=== PATIENT | female | born 1930 | race Caucasian/White ===

== ENCOUNTER 2016-09-30 07:19 | Inpatient (IN) | payer MEDICARE, BC ==
[2016-09-28 13:41] VITALS: BMI 31.3
[~2016-09-30 07:19] MED LIST: ALPRAZolam 0.25 MG TAB PO PRN; ALPRAZolam 0.5 MG TAB PO PRN; ASPIRIN 325 MG TAB PO STA; ATORVASTATIN 80 MG TAB PO STA; NITROGLYCERIN SL TABS 0.4 MG TAB SUBLINGUAL PRN; SODIUM CHLORIDE 0.9% 1,000 ML in EMPTY BAG 1 BAG IV ONE
[2016-09-30] MEDS ORDERED: MIDAZOLAM 2 MG/2 ML VIAL ONE ×2 (10:41→22:51)
[2016-09-30] MEDS ORDERED: diphenhydrAMINE 50 MG/ML 1 ML VIAL ONE (10:41)
[2016-09-30] MEDS ORDERED: diphenhydrAMINE 50 MG/ML 1 ML VIAL IVP ONE (11:11)
[2016-09-30] MEDS ORDERED: MIDAZOLAM 2 MG/2 ML VIAL IV ONE ×2 (11:11→22:59)
[2016-09-30] MEDS ORDERED: LIDOCAINE 2% INJ 20 MG/ML SQ ONE (11:22)
[2016-09-30] MEDS ORDERED: NITROGLYCERIN SL TABS 0.4 MG TAB SUBLINGUAL ONE ×2 (11:28→12:29)
[2016-09-30] MEDS: NITROGLYCERIN SL TABS 0.4 MG TAB SUBLINGUAL ONE ×2 (11:29→12:30)
[2016-09-30] MEDS: NITROGLYCERIN 1000MCG/10ML SYRINGE INTRACORON ONE ×2 (11:30→12:41)
[2016-09-30] MEDS ORDERED: BIVALIRUDIN BOLUS 250 MG/50 ML IV ONE (11:50)
[2016-09-30] MEDS ORDERED: BIVALIRUDIN 250 MG in SODIUM CHLORIDE 0.9% 50 ML IV ONE (11:52)
[2016-09-30] MEDS ORDERED: CLOPIDOGREL 75 MG TAB ONE (12:47)
[2016-09-30] MEDS ORDERED: IODIXANOL 320 MG/ML 100 ML INTRAARTER ONE (12:47)
[2016-09-30] MEDS ORDERED: CLOPIDOGREL 75 MG TAB PO ONE (12:49)
[2016-09-30] MEDS ORDERED: ATROPINE SULFATE 0.1 MG/ML 10ML SYRINGE IV PRN (12:55)
[2016-09-30] MEDS ORDERED: MAG HYDROX/AL HYDROX/SIMETH 30 ML CUP PO PRN (12:55)
[2016-09-30] MEDS ORDERED: RX INFO: IV CONTRAST WAS GIVEN 1 EACH MISC MISCELLANE PRN ×2 (12:55→15:45)
[2016-09-30] MEDS ORDERED: NITROGLYCERIN SL TABS 0.4 MG TAB SUBLINGUAL PRN ×2 (12:55→17:04)
[2016-09-30] MEDS: SODIUM CHLORIDE 0.9% 1,000 ML IV SCH ×2 (15:18→21:24)
[2016-09-30 15:45] LABS: Glucose,Whole Blood 114 mg/dL (75-99)
[2016-09-30] MEDS ORDERED: LABETALOL SYRINGE 5 MG/ML IVP STA (16:23)
[2016-09-30] MEDS ORDERED: NITROGLYCERIN SL TABS 0.4 MG TAB SUBLINGUAL STA (16:24)
--- NOTE | 2016-09-30 16:30 | CT ---
EXAMINATION TYPE: CT brain wo con for TPA DATE OF EXAM: 09/30/2016 4:12 PM COMPARISON: NONE INDICATION: code stroke. lethargic. DLP: 309.4 mGycm, Automated exposure control for dose reduction was used. CONTRAST: None CT of the brain is performed utilizing 3 mm thick sections through the posterior fossa and 3 mm thick sections through the remaining calvarium. Study is performed within 24 hours of arrival to the hosp [facility]. No abnormal hyperdensity is present to suggest an acute intracranial hemorrhage. No mass lesion is evident. No acute infarcts are evident. There is confluent periventricular white matter hypodensity, likely on the basis of chronic white matter ischemic changes. Ventricles and sulci are prominent for the patient age. Paranasal sinuses and mastoid air cells within the [id number]-alad are clear. IMPRESSIONS: 1. Atrophy with periventricular white matter ischemic changes.
--- NOTE | 2016-09-30 16:54 | CT ---
EXAMINATION TYPE: CT angio head neck DATE OF EXAM: 09/30/2016 4:30 PM COMPARISON: NONE HISTORY: code stroke. lethargic and facial droop. CT DLP: 309.4 mGycm Automated exposure control for dose reduction was used. TECHNIQUE: Performed with IV Contrast, patient injected with 65 mL of Visipaque 320. Source images are reviewed. Three-D reconstructed images performed separately on the Spock computer by the technologist are reviewed. FINDINGS: [place] of [place]: Internal carotid arteries bifurcate normally and A1 and M1 segments. The anterior c ommunicating artery is patent. Posterior communicating arteries are not identified. The A2 segments a ppear unremarkable. Middle cerebral artery branches appear normal. Posterior cerebral vasculature taylor ears normal. CTA neck: No obstruction of the carotid siphons is evident. No significant flow-limiting stenosis is evident. Atheromatous plaquing is present at the left carotid bifurcation. Significant flow-limiting stenosis is not present. IMPRESSION: 1. BILATERAL CAROTID BIFURCATIONS WITH ATHEROMATOUS PLAQUING, WORSE ON THE LEFT. SIGNIFICANT FLOW-WADDELL ITING STENOSIS IS NOT PRESENT. 2. NORMAL CTA [place] OF [place]
[2016-09-30] MEDS ORDERED: traMADol 50 MG TAB PO PRN (17:04)
[2016-09-30] MEDS ORDERED: ONDANSETRON 4 MG TAB PO PRN (17:04)
[2016-09-30] MEDS ORDERED: NON-FORMULARY DRUG (Omega-3 Fatty Acids/Fish Oil [Fish Oil 1,000 Mg Softgel] 1 EACH) PO SCH (17:04)
[2016-09-30 17:17] LABS: INR 1.3 (<1.1); Prothrombin Time 13.1 sec (9.0-12.0)
[2016-09-30 17:20] LABS: CH 28.1; CHCM 31.6; HCT 40.8 % (34.0-46.0); HDW 2.72; HGB 13.1 gm/dL (11.4-16.0); Hypochromasia Slight; MCH 28.7 pg (25.0-35.0); MCHC 32.1 g/dL (31.0-37.0); MCV 89.3 fL (80.0-100.0); Mean Platelet Volume 6.7; RBC 4.56 m/uL (3.80-5.40); RDW 13.4 % (11.5-15.5); WBC 9.5 k/uL (3.8-10.6)
[2016-09-30 17:49] LABS: Creatine Kinase MB 1.1 ng/mL (0.0-2.4)
[2016-09-30 17:51] LABS: Troponin I 0.041 ng/mL (0.000-0.034)
[2016-09-30] MEDS ORDERED: LISINOPRIL 10 MG TAB PO STA (18:38)
[2016-09-30] MEDS: METOPROLOL TARTRATE 25 MG TAB PO SCH (18:38)
[2016-09-30 19:19] LABS: Anion Gap 16 mmol/L; Blood Urea Nitrogen 16 mg/dL (7-17); Carbon Dioxide 16 mmol/L (22-30); Chloride 108 mmol/L (98-107); Creatine Kinase 60 U/L (30-135); Non-African American GFR(MDRD) >60 (>60 ml/min/1.73 sqM); Potassium 3.5 mmol/L (3.5-5.1); Sodium 140 mmol/L (137-145)
[2016-09-30] MEDS ORDERED: ONDANSETRON 4 MG/2 ML VIAL IVP PRN (19:54)
[2016-09-30] MEDS ORDERED: LABETALOL SYRINGE 5 MG/ML IVP PRN (20:15)
[2016-09-30] MEDS ORDERED: FUROSEMIDE 10 MG/ML 2 ML VIAL IV STA (20:51)
--- NOTE | 2016-09-30 21:16 | PN ---
Mrs. Mckinley underwent stenting of a very difficult complex circumflex vessel performed by me today. Postprocedure she required a prolonged pressure on her right femoral artery to secure hemostasis. After she was transferred to the floor, she became a bit confused and apparently there was a question of stroke. A Code stroke was called. CT scan was performed, which did not reveal any significant abnormalities. The whole process of a CODE stroke was conducted. By the time patient recovered neurologically she seems a bit confused but answers questions appropriately and follows commands. Blood pressure is about 167/77. I discussed with the neurologist precipitation equipment tender for the CODE stroke through the visual consulting. I believe that an accelerated hypertension may have caused some transient ischemia type picture, which seems to have resolved. However, the patient is neurologically intact, some confusion, but even that has cleared up. There are no motor deficits but speech may be an issue, await Neurology input. Blood pressure is 167/77. Pulse rate 70 per minute. S1, S2 with a short systolic murmur at the base is audible. Lungs are clear. Abdomen and lower extremity exam is unchanged. The right groin still has a FemoStop and appears to be stable. I am recommending that we continue all her medications. Keep the blood pressure in the range between 140 and 170 systolic and based on clinical course, I will make further recommendations. I spoke to the patient and her and her daughter. The plan will be to continue to follow her and watch her closely and tomorrow morning we will obtain the EKG and additional laboratory data. BARAK
[2016-09-30 22:07] LABS: Glucose,Whole Blood 174 mg/dL (75-99)
[2016-09-30] MEDS ORDERED: MIDAZOLAM (PF) 1 MG/ML 5 ML VIAL IV STA (22:31)
[2016-09-30] MEDS ORDERED: METOPROLOL TARTRATE 25 MG TAB PO STA (22:31)
[2016-09-30] MEDS ORDERED: amLODIPine 5 MG TAB PO STA (22:31)
--- NOTE | 2016-09-30 22:32 | CONS ---
DATE OF CONSULTATION: 09/30/2016 CHIEF COMPLAINT: Stroke. HISTORY OF PRESENT ILLNESS: Mrs. Mckinley is an 86-year-old female who is being evaluated by the neurology service per the request of Dr. Angel Gutierrez for an acute stroke. The patient was brought into [facility] Emergency Room for a scheduled heart cath and the patient did end up having 2 stents placed. She does have an extensive history of coronary artery disease with a previous bypass graft. She had been following up with cardiology in the outpatient clinic and did have a heart cath several months ago which was negative, according to the family. The patient recently had an abnormal stress test which prompted this current heart cath and 2 stents were placed as mentioned above. After the procedure, the patient was on the medical floor when she developed a sudden onset of difficulty talking. A code stroke was called, but she was not found to be a candidate for TPA due to the recent heart cath. At the time of my evaluation, she is lying in her bed and continues to have symptoms of receptive and expressive aphasias along with dysarthria. She is moving all 4 extremities spontaneously with no obvious lateralizing weakness. A stat CT scan of the brain was done, which showed generalized atrophy and small-vessel ischemic changes. A CT angiogram of the brain was done, which was normal. A CT angiogram of the neck showed no significant stenosis. Her CBC is normal. The patient is currently on aspirin and Plavix. PAST MEDICAL HISTORY: Coronary artery disease, diabetes, hypertension, history of coronary artery bypass grafting and recent stent placement as mentioned above. SOCIAL HISTORY: There is no history of any tobacco, alcohol or drug use. FAMILY HISTORY: Noncontributory. HOME MEDICATIONS: Reviewed in the chart. ALLERGIES: MORPHINE AND ATIVAN. REVIEW OF SYSTEMS: Unable to obtain due to aphasia. PHYSICAL EXAM: Vital signs show a temperature of 97.5, pulse 69, respirations 20, blood pressure 140/75. GENERAL APPEARANCE: The patient is a well-developed, elderly female who appears to be in no acute distress. HEENT: Normocephalic, atraumatic. Mild right facial droop is seen. Neck is supple with no masses felt. CARDIOVASCULAR: Regular rate and rhythm. ABDOMEN: Nontender, nondistended. Extremities showed trace edema with no clubbing seen. NEUROLOGICAL: The patient is awake, but has evidence of a mixed aphasia, receptive more than expressive. Speech is dysarthric. She does move all 4 extremities with no obvious lateralizing weakness seen. Sensory was difficult to perform due to her receptive aphasia. A mild right facial droop is noticed. No seizure-like activity is seen. IMPRESSION: 1. Acute ischemic stroke, left middle cerebral artery distribution. 2. Receptive and expressive aphasia. 3. Hypertension. 4. Coronary artery disease with recent stent placements. 5. Diabetes. RECOMMENDATIONS: The patient does appear to have suffered an acute ischemic stroke involving the left middle cerebral artery distribution. Her initial CT scan of the brain failed to show the hypoperfusion/hypoattenuation. She is unable to undergo an MRI due to the recent stent placement. I will repeat a CT scan of the brain in 24 hours. Continue IV hydration as tolerated. The patient is already on Plavix and aspirin. I will consult Speech Therapy to evaluate and treat. I do recommend a swallow study to be done by Speech Therapy. Continue neuro checks. I will continue to follow with you. Further recommendations to follow. Thank you for allowing me to participate in the care of your patient. If you have any questions, please feel free to contact me.
[2016-09-30] MEDS: ATORVASTATIN 80 MG TAB PO SCH (22:56)
[2016-09-30] MEDS: VIT A,C & E-LUTEIN-MINERALS 1 EACH TAB PO SCH (22:56)
[2016-09-30 23:27] LABS: Appearance,Urine Clear (Clear); Bilirubin,Urine Negative (Negative); Glucose,Urine (UA) Negative (Negative); Ketones,Urine Trace (Negative); Leukocyte Esterase,Urine Negative (Negative); Nitrite,Urine Negative (Negative); Protein,Urine Negative (Negative); UA Billing (MACRO vs. MICRO) CHEM; Urobilinogen,Urine <2.0 mg/dL (<2.0)
[2016-10-01] MEDS: ZOLPIDEM 5 MG TAB PO PRN (01:11)
[2016-10-01 05:23] LABS: Basophils % (A) 0 %; CH 28.7; CHCM 33.7; Eosinophils # (A) 0.1 k/uL (0-0.7); Eosinophils % (A) 1 %; HCT 37.6 % (34.0-46.0); HDW 2.74; HGB 12.6 gm/dL (11.4-16.0); Luc # (Auto) 0.06; Luc % (Auto) 0; Lymphocytes % (A) 7 %; MCH 28.6 pg (25.0-35.0); MCHC 33.5 g/dL (31.0-37.0); MCV 85.4 fL (80.0-100.0); Mean Platelet Volume 6.6; Monocytes # (A) 0.3 k/uL (0-1.0); Monocytes % (A) 2 %; Neutrophils # (A) 12.9 k/uL (1.3-7.7); Neutrophils % (A) 90 %; RDW 13.7 % (11.5-15.5); WBC 14.4 k/uL (3.8-10.6)
[2016-10-01 05:38] LABS: Anion Gap 16 mmol/L; Blood Urea Nitrogen 15 mg/dL (7-17); Calcium 8.9 mg/dL (8.4-10.2); Carbon Dioxide 20 mmol/L (22-30); Chloride 105 mmol/L (98-107); Glucose 168 mg/dL (74-99); Non-African American GFR(MDRD) 60 (>60 ml/min/1.73 sqM); Potassium 3.6 mmol/L (3.5-5.1); Sodium 141 mmol/L (137-145)
[2016-10-01] MEDS ORDERED: Potassium Replacement Protocol 1 EACH MISC MISCELLANE PRN (07:00)
--- NOTE | 2016-10-01 07:20 | CC ---
DATE OF SERVICE: 09/30/2016 PROCEDURE: Left heart catheterization, coronary angiography and selective injection of bypass grafts. PERFORMED BY: Dr. Angel Gutierrez. CLINICAL INFORMATION: Mrs. Ada Mckinley is an 86-year-old elderly lady with a known history of aortocoronary bypass surgery in 2007 with GONZALEZ to LAD and 2 separate vein grafts to the 2 branches of circumflex. Right coronary artery was dominant and was not grafted. In June she presented with ST elevation AR type picture, but coronary angiography revealed that there was significant disease in one of the vein grafts to the obtuse marginal, the other graft was not visualized and presumably occluded. GONZALEZ was patent. However, upon passing a wire and a balloon before dilatation itself, the vessel opened up and there was brisk flow and EKG changes normalized and it was assumed that there may have been a thrombus in the graft to the obtuse marginal. So, no intervention was performed. However, the patient had a positive stress test, was advised cardiac catheterization and brought in for the procedure electively. PROCEDURE NOTE: Under local anesthesia and strict aseptic precautions, a 6-Tuvaluan introducer was placed in the right femoral artery. Using standard Naveen catheters, I performed coronary angiography of the left coronary artery then used a Silver catheter for selective injection of the chicken ranch RCA and also the vein graft to obtuse marginal branch of circumflex. The same catheter was used to do an injection of GONZALEZ graft. I used an AR-2 catheter and with this I was able to selectively cannulate the totally occluded graft to the PLV branch of circumflex and also got a better image of the vein graft to the obtuse marginal branch. I noted that the vein graft to the obtuse marginal had a 95% mid lesion and ostial 80% lesion, which represented progression of disease. However, this was a graft that appeared to be quite diseased and I felt that it will be better to open the chicken ranch circumflex itself. I therefore recommended intervention that was performed in the same setting. An LV gram was not performed and LV pressures were not checked. CORONARY ANGIOGRAPHIC FINDINGS: LEFT MAIN CORONARY ARTERY: A short, patent, disease-free vessel that bifurcates into LAD and circumflex. LEFT ANTERIOR DESCENDING CORONARY ARTERY: This vessel is occluded in the midportion after septal and diagonal branch. Competitive flow was noted from the GONZALZE. LEFT POSTERIOR CIRCUMFLEX CORONARY ARTERY: This vessel gives off a small obtuse marginal branch and then there is a large obtuse marginal branch. Before the origin of the large obtuse marginal branch, there is a 70% stenosis and within the obtuse marginal there is a 95% stenosis. The continuation of circumflex in the AV groove is totally occluded and seems to feel very faintly the distal portion. The circumflex marginal therefore has a significant lesion of about 95% before and after another obtuse marginal branch and there is heavy calcification noted in this segment. RIGHT CORONARY ARTERY: This vessel is large, dominant has minor irregularities of less than 30% distally bifurcates into larger PDA, smaller PLV supplies a fair amount of myocardium. There is no significant disease in the RCA. SAPHENOUS VEIN GRAFT TO THE OBTUSE MARGINAL BRANCH OF CIRCUMFLEX: This graft is highly diseased at its origin, has 80% stenosis. The body in the midportion has a 95% stenosis. The insertion site has some narrowing and the floor within the graft is fairly well preserved, but the body of the graft appears to be highly diseased. SAPHENOUS VEIN GRAFT TO THE PLV BRANCH OF CIRCUMFLEX: This graft is totally occluded, seen as a stump, LEFT INTERNAL MAMMARY ARTERY GRAFT TO LAD: This graft is widely patent and supplies the LAD. There is some intrinsic disease within the LAD of about 30 to 40% but overall this is a good graft with decent opacification of the LAD system. FINAL IMPRESSION: This patient has total occlusion of vein graft to the PLV and also a highly diseased graft both in the ostium and the body of 80% and 90% and this graft opacifies the obtuse marginal. The chicken ranch obtuse marginal is also diseased and heavily calcified. RCA is free of significant disease. LAD is occluded but GONZALEZ to LAD is patent. RECOMMENDATIONS: After some deliberation, I advised intervention of the chicken ranch circumflex and proceeded to perform this in the same setting.
[2016-10-01] MEDS: POTASSIUM CHLORIDE 10 MEQ, LIDOCAINE 2% INJ 10 MG in SODIUM CHLORIDE 0.9% 100 ML IV SCH ×2 (07:23→08:54)
--- NOTE | 2016-10-01 07:28 | PTCA ---
DATE OF SERVICE: 09/30/2016 PROCEDURE: PTCA and stenting of complex calcified circumflex coronary artery. PERFORMED BY: Dr. Angel Gutierrez. CLINICAL INFORMATION: Mrs. Ada Mckinley is an 86-year-old elderly lady with a known history of aortocoronary bypass surgery in 2007 with GONZALEZ to LAD and 2 separate vein grafts to the 2 branches of circumflex. Right coronary artery was dominant and was not grafted. In June she presented with ST elevation PR type picture, but coronary angiography revealed that there was significant disease in one of the vein grafts to the obtuse marginal, the other graft was not visualized and presumably occluded. GONZALEZ was patent. However, upon passing a wire and a balloon before dilatation itself, the vessel opened up and there was brisk flow and EKG changes normalized and it was assumed that there may have been a thrombus in the graft to the obtuse marginal. So, no intervention was performed. However, the patient had a positive stress test, was advised cardiac catheterization and brought in for the procedure electively. Mrs. Mckinley was advised intervention of circumflex, which was a difficulty complex calcified lesion and I performed this in the same setting. PROCEDURE NOTE: Existing 6-Romansh introducer was used to perform the procedure, a standard left Naveen-type guide catheter was used to cannulate the left coronary artery. A BMW wire was used to cross the lesion. Wire was kept in the distal aspect of the circumflex marginal. I tried to cross the total occlusion of the groove branch, but was unsuccessful. I then advanced another wire alongside. I tried to advance a balloon to dilate, but I had great difficulty with a 2.5 and a 2.0 balloon. Eventually I used a 1.5 caliber Trek balloon. After multiple attempts, I was able to cross the lesion and ( ) dilatation of the obtuse marginal. With this, there was significant improvement. Then I went up to 2.0 NC Trek balloon and then eventually I deployed a 2.25 caliber, 8 mm long Xience stent in the circumflex marginal after the origin of the smaller circumflex. Then before the smaller circumflex marginal branch and just at the origin of the circumflex marginal from the main circumflex, another 2.25 caliber, 8 mm long Xience stent was deployed. Excellent angiographic result was achieved without complication. There was a remarkable improvement in angiographic appearance and flow and the entire graft also seems to opacify. The patient received 600 mg of Plavix and also received Angiomax bolus and infusion. The sheath was taken out and Angio-Seal applied but I could not get a good hemostasis and manual compression was applied for a very long time and then FemoStop was applied. Angiographically excellent results were achieved. Results were discussed with the patient's and daughter and the images were reviewed with them. The patient will be sent to the telemetry unit and if she remains stable will hopefully be discharged tomorrow. Findings, results and recommendations were reviewed with the patient, her daughter and her .
--- NOTE | 2016-10-01 07:52 | PN ---
This morning Ms. Mckinley is alert, oriented, less confused, answering questions appropriately. She is not in any distress. The right groin is clean and dry. Blood pressure is 136/70, pulse rate is 70 per minute. She was seen by Neurology yesterday and Dr. Ortiz has ordered a CAT scan that will be done today. The plan for today would be to increase activity, have her up in a chair and resume her cardiac diet and see how she does. If she has no further symptoms and CAT scan is acceptable to the Neurology, I think she can be discharged later on today. She probably has ischemic stroke with Speech but no clearcut motor issues. Speec and Occupational therapy is on the case. Physical exam revealed evidence of JVD of 1 cm, no carotid bruit. S1, S2 heard normally. No significant murmur. Lungs reveal decent air entry. Abdomen is soft, nontender. Lower extremities reveal palpable pulses. Right groin is clean and dry. EKG is pending. Laboratory data are acceptable. I will review the EKG, await input from Neurology and CAT scan and then she may be discharged either later today or tomorrow. I will be speaking to the family when they arrive. BARAK
[2016-10-01] MEDS: ASPIRIN 81 MG CHEW PO SCH (08:54)
[2016-10-01] MEDS: METOPROLOL TARTRATE 25 MG TAB PO SCH ×2 (08:54→22:34)
[2016-10-01] MEDS: LISINOPRIL 10 MG TAB PO SCH (08:54)
[2016-10-01] MEDS: CLOPIDOGREL 75 MG TAB PO SCH (08:54)
[2016-10-01] MEDS: PANTOPRAZOLE 40 MG/10 ML VIAL IVP SCH (08:54)
[2016-10-01] MEDS: CALCIUM CARBONATE 500 MG CHEWABLE PO SCH (08:54)
[2016-10-01] MEDS: SERTRALINE 100 MG TAB PO SCH (08:55)
[2016-10-01] MEDS ORDERED: ASPIRIN 81 MG CHEW PO SCH (09:00)
[2016-10-01] MEDS ORDERED: FAMOTIDINE 20 MG TAB PO SCH (09:00)
[2016-10-01] MEDS ORDERED: CLOPIDOGREL 75 MG TAB PO SCH (12:00)
[2016-10-01] MEDS: CHOLECALCIFEROL 1,000 UNIT TAB PO SCH (12:11)
--- NOTE | 2016-10-01 15:35 | P.PN ---
Subjective Principal diagnosis: Stroke Is a pleasant 86-year-old female continuing be evaluated by the neurology service for acute stroke. She was brought to [facility] for scheduled heart catheterization and subsequently had 2 stents placed. After the procedure, the patient is on the medical floor and developed trouble speaking. Code stroke was called and she was not a candidate for TPA because of her recent heart catheterization. A CT of the brain was done and showed generalized atrophy and small vessel ischemic changes. A CTA was done and was normal. Because her symptoms were very suggestive of a stroke a repeat CT was ordered, but has not yet been performed. She cannot have an MRI due to her recent stent placement. At the time of my exam she is sitting up in her bedside chair resting comfortably in no acute distress. Consult is been placed for speech therapy she denies problems swallowing. Objective - Vital Signs Vital signs: Vital Signs Temp 98.3 F 10/01/16 12:00 Pulse 77 10/01/16 15:00 Resp 18 10/01/16 15:00 BP 133/75 10/01/16 15:00 Pulse Ox 98 10/01/16 15:00 Intake & Output 09/30/16 10/01/16 10/01/16 18:59 06:59 18:59 Intake Total 435.7 525 890 Output Total 1325 435 Balance 435.7 -800 455 Weight 68.039 kg 69.1 kg Intake: IV 435.7 525 450 Sodium Chloride 0.9% 1, 525 450 000 ml @ 75 mls/hr IV . [id number] DEAN Rx#:[id number] Intake, IV Titration 100 Amount Potassium Chloride 10 meq 100 Lidocaine 2% Inj 10 mg In Sodium Chloride 0.9% 100 ml @ 100 mls/hr IV Q1HR DEAN Rx#:[id number] Oral 340 Output: Urine 1325 435 Other: Voiding Method Indwelling Catheter Indwelling Catheter # Bowel Movements 1 - Constitutional General appearance: Present: average body habitus, cooperative, no acute distress - EENT Eyes: Present: EOMI, PERRLA. Absent: abnormal pupil, ptosis ENT: Present: hearing grossly normal - Neck Neck: Present: normal ROM. Absent: rigidity - Respiratory Respiratory: negative: prolonged expiration, prolonged inspiration - Cardiovascular Rhythm: regular - Gastrointestinal General gastrointestinal: Absent: distended, tenderness - Neurologic Neurologic Comment(s): Patient is alert awake and oriented 3. Speech and language are normal. There is no lateralizing weakness. Strength is 5 minus out of 5 in bilateral upper and lower extremities. There is mild bilateral dysmetria with finger to nose testing, which seems normal for her age. There is no sensory deficit in any extremity. There is no sensory deficit to the face. No significant facial droop was noted. She does have some right sided periorbital bruising from a fall, which she does recall that happened about a week ago. No significant tremors are seen. No seizure-like activities are seen. - Labs CBC & Chem 7: 10/01/16 04:58 10/01/16 04:58 Labs: Abnormal Lab Results - Last 24 Hours (Table) 09/30/16 09/30/16 09/30/16 Range/Units 15:42 16:59 16:59 WBC (3.8-10.6) k/uL Neutrophils # (1.3-7.7) k/uL PT 13.1 H (9.0-12.0) sec Chloride (98-107) mmol/L Carbon Dioxide (22-30) mmol/L Glucose (74-99) mg/dL POC Glucose (mg/dL) 114 H (75-99) mg/dL Troponin I 0.041 H* (0.000-0.034) ng/mL Urine Ketones (Negative) 09/30/16 09/30/16 09/30/16 Range/Units 16:59 21:50 23:15 WBC (3.8-10.6) k/uL Neutrophils # (1.3-7.7) k/uL PT (9.0-12.0) sec Chloride 108 H (98-107) mmol/L Carbon Dioxide 16 L (22-30) mmol/L Glucose (74-99) mg/dL POC Glucose (mg/dL) 174 H (75-99) mg/dL Troponin I (0.000-0.034) ng/mL Urine Ketones Trace H (Negative) 10/01/16 10/01/16 Range/Units 04:58 04:58 WBC 14.4 H (3.8-10.6) k/uL Neutrophils # 12.9 H (1.3-7.7) k/uL PT (9.0-12.0) sec Chloride (98-107) mmol/L Carbon Dioxide 20 L (22-30) mmol/L Glucose 168 H (74-99) mg/dL POC Glucose (mg/dL) (75-99) mg/dL Troponin I (0.000-0.034) ng/mL Urine Ketones (Negative) Microbiology - Last 24 Hours (Table) 09/30/16 23:15 Urine Culture - Preliminary Urine,Catheterized Assessment and Plan (1) Aphasia Status: Resolved (2) Hypertension Status: Chronic (3) Diabetes Status: Chronic (4) CVA (cerebral vascular accident) Status: Acute Plan: Symptoms from her likely acute ischemic stroke are largely resolved. Recall that her initial CT of the brain did not show areas of hypo-attenuation. Repeat CT of the brain is pending. Continue to monitor in the ICU. Speech therapy and physical therapy have been consult and her working with patient. She has no trouble swallowing at this time. Her speech problems are largely resolved. Continue antiplatelet/anticoagulation as above. We will continue to follow and make recommendations based on the above study. I have performed a history and physical on the above patient. I have reviewed the above note, and agree.
--- NOTE | 2016-10-01 15:44 | CT ---
EXAMINATION TYPE: CT brain wo con DATE OF EXAM: 10/01/2016 3:39 PM COMPARISON: Previous study dated 09/30/2016. HISTORY: Follow-up study for facial droop and lethargy. CT DLP: 1073.00 mGycm Automated exposure control for dose reduction was used. FINDINGS: There are generalized changes of sulcal prominence and ventriculomegaly, compatible with atrophic sergei nge. There is diffuse periventricular white matter lucency, compatible with chronic white matter isch emic change. There is no acute focal lesion, mass effect or midline shift identified. I do not see ev idence of intracranial blood. Visualized portions of the paranasal sinuses and mastoids are clear. No depressed skull fracture is s een. IMPRESSION: 1. NO ACUTE INTRACRANIAL ABNORMALITY. 2. ATROPHIC CHANGE. 3. CHRONIC WHITE MATTER ISCHEMIC CHANGE.
--- NOTE | 2016-10-01 16:59 | XR ---
EXAMINATION TYPE: XR chest 1V portable DATE OF EXAM: 10/01/2016 4:52 PM HISTORY: Leukocytosis. REFERENCE: Previous study dated 07/05/2016. FINDINGS: There has been a midline sternotomy. Heart size is upper limits of normal. The patient has taken a poor inspiration. Allowing for this the lungs are clear. Pleural spaces appear clear. IMPRESSION: LIMITED EXAMINATION DEMONSTRATING BORDERLINE CARDIOMEGALY.
--- NOTE | 2016-10-01 20:21 | CONS ---
DATE OF CONSULTATION: REASON FOR CONSULTATION: Advice regarding CVI, hypertension and multiple other medical issues, requested by Dr. Angel Gutierrez. HISTORY OF PRESENT ILLNESS: This 86-year-old woman with a past history of CAD, history of myocardial infarction, history of CAD with stent, history of hypertension, hyperlipidemia, history of pneumonia, history of vertigo, history of CABG, history of anxiety, depression, being followed by Dr. Umaña in the outpatient setting, had previous stents and coronary artery procedures. Dr. Angel Gutierrez recommended that the patient be admitted at this time because of abnormal stress test and cardiac catheterization, PTCA, and stenting of the complex calcified circumflex coronary artery was done by Dr. Angel Gutierrez. Subsequently when in the hospital the patient suffered an episode of difficulty in speaking and CODE STROKE was given. The patient was found to be not a candidate for TPA and the patient was admitted for further evaluation and treatment. Two CT scans have been done so far after the event which showed diffuse small ischemia, and the patient is being closely monitored at this time. The dysphasia is improving at this time. There is no history of any fever, rigor, or chills. No history of any headache, loss of consciousness, seizures. PAST MEDICAL HISTORY: 1. History of CAD, CABG, stents. 2. History of GERD. 3. Hypertension. 4. Hyperlipidemia. 5. DJD. 6. Pneumonia. 7. Vertigo. HOME MEDICATIONS: 1. Nitrostat 0.4 sublingually p.r.n. 2. Pepcid 40 mg daily. 3. Ecotrin 81 mg daily. 4. Sleep Aide 1 tablet at bedtime. 5. Vitamin C, E, zinc, copper, lutein 1 tablet at bedtime. 6. Zoloft 100 mg p.o. daily. 7. Fish oil 1 8. Vitamin D3 2000 daily. 9. Ultram 50 mg b.i.d. p.r.n. 10. Zofran 4 mg p.o. b.i.d. p.r.n. 11. Lopressor 50 mg each morning. 12. Metoprolol 25 mg at bedtime. 13. Zestril 10 mg p.o. daily. 14. Plavix 75 mg p.o. daily. 15. Calcium 600 mg p.o. daily. 16. Lipitor 80 mg p.o. at bedtime. ALLERGIES: MORPHINE and ATIVAN. FAMILY HISTORY: History of myocardial infarction in the family. SOCIAL HISTORY: No history of smoking. No history of alcohol intake. REVIEW OF SYSTEMS: ENT: Diminishing hearing. Diminished vision. CARDIOVASCULAR SYSTEM: No angina, palpitations. Otherwise as mentioned earlier. RESPIRATORY SYSTEM: No cough, hemoptysis. GI: No nausea, vomiting. : No dysuria, retention. NERVOUS SYSTEM: No numbness or weakness. ALLERGY/IMMUNOLOGY: No asthma, hayfever. MUSCULOSKELETAL: As mentioned earlier. HEMATOLOGY/ONCOLOGY: No history of anemia. ENDOCRINE: No history of diabetes, hypothyroidism. CONSTITUTIONAL: As mentioned earlier. DERMATOLOGY: Negative. RHEUMATOLOGY: Negative. PSYCHIATRY: As mentioned earlier. PHYSICAL EXAMINATION: Patient alert and oriented x3. Pulse 77, blood pressure 133/75, respiration 18, temperature normal, pulse ox 98% on 2 L. HEENT: Conjunctivae normal. Ecchymosis around the right eye present. NECK: No jugular venous distention. CARDIOVASCULAR SYSTEM: S1, S2 muffled. RESPIRATORY SYSTEM: Breath sounds diminished at the bases. A few scattered rhonchi. No crackles. ABDOMEN: Soft, obese, nontender. No mass palpable. LEGS: No edema. No swelling. NERVOUS SYSTEM: Higher functions as mentioned earlier. Cranial nerves 2 through 12 grossly intact. Moves all 4 limbs. Mild weakness on the right upper limb present. Otherwise, no other focal weakness noted. SKIN: No ulcer, rash, bleeding except ecchymosis. LYMPHATICS: No lymph node palpable in neck, axillae or groin. JOINTS: No active deforming arthropathy. LABS: WBC 14.4. Sodium 140. CO2 16. Troponin 0.041. ASSESSMENT: 1. Coronary artery disease with abnormal stress test, status post cardiac catheterization as well as stenting of the complex calcified circumflex coronary artery. 2. Dysphasia with possible acute cerebrovascular incident involving the left hemisphere. 3. History of coronary artery disease, coronary artery bypass grafting and stent. 4. History of gastroesophageal reflux disease. 5. Hypertension. 6. Hyperlipidemia. 7. History of myocardial infarction. 8. History of degenerative joint disease. 9. History of pneumonia. 10. History of vertigo. 11. Left eye macular degeneration. 12. History of appendectomy. 13. Bilateral cataracts. 14. Anxiety, depression not otherwise specified. 15. Obesity with a body mass index of 31.8. 16. Ecchymosis of the right eye. 17. Gait dysfunction. 18. FULL CODE. RECOMMENDATIONS AND DISCUSSION: In this 86-year-old woman who presented with multiple complex medical issues, we will monitor the patient closely, continue the current medications, continue symptomatic treatment, continue with antiplatelet agents, continue with Lipitor, continue the rest of the medications. DVT prophylaxis. I would also recommend PT, OT evaluation and evaluate the patient for ECF rehab. The patient also is apparently taking care of her elderly , according to the family. I would also recommend a social service consultation for evaluation of the home situation. Otherwise, Neurology has been consulted. Will follow the patient closely with you. Thank you, Dr. Angel Gutierrez, for letting us participate in the care of this patient. BARAK
[2016-10-01] MEDS: VIT A,C & E-LUTEIN-MINERALS 1 EACH TAB PO SCH (22:34)
[2016-10-01] MEDS: ATORVASTATIN 80 MG TAB PO SCH (22:34)
[2016-10-02 06:09] LABS: Basophils % (A) 0 %; CH 28.3; Eosinophils # (A) 0.2 k/uL (0-0.7); Eosinophils % (A) 2 %; HCT 39.1 % (34.0-46.0); HDW 2.85; HGB 12.3 gm/dL (11.4-16.0); Luc # (Auto) 0.13; Luc % (Auto) 1; Lymphocytes % (A) 21 %; MCH 28.1 pg (25.0-35.0); MCHC 31.5 g/dL (31.0-37.0); Monocytes # (A) 0.5 k/uL (0-1.0); Monocytes % (A) 5 %; Neutrophils # (A) 6.4 k/uL (1.3-7.7); Neutrophils % (A) 69 %; RBC 4.39 m/uL (3.80-5.40); RDW 13.8 % (11.5-15.5); WBC 9.3 k/uL (3.8-10.6)
[2016-10-02 06:21] LABS: Anion Gap 11 mmol/L; Blood Urea Nitrogen 20 mg/dL (7-17); Calcium 9.4 mg/dL (8.4-10.2); Carbon Dioxide 22 mmol/L (22-30); Chloride 108 mmol/L (98-107); Glucose 115 mg/dL (74-99); Non-African American GFR(MDRD) 53 (>60 ml/min/1.73 sqM); Potassium 4.6 mmol/L (3.5-5.1); Sodium 141 mmol/L (137-145)
[2016-10-02] MEDS: PANTOPRAZOLE 40 MG/10 ML VIAL IVP SCH (09:06)
[2016-10-02] MEDS: METOPROLOL TARTRATE 25 MG TAB PO SCH ×2 (09:10→20:01)
[2016-10-02] MEDS: CALCIUM CARBONATE 500 MG CHEWABLE PO SCH (09:11)
[2016-10-02] MEDS: ASPIRIN 81 MG CHEW PO SCH (09:11)
[2016-10-02] MEDS: CLOPIDOGREL 75 MG TAB PO SCH (09:11)
[2016-10-02] MEDS: FAMOTIDINE 20 MG TAB PO SCH (09:11)
[2016-10-02] MEDS: SERTRALINE 100 MG TAB PO SCH (09:12)
[2016-10-02] MEDS: LISINOPRIL 10 MG TAB PO SCH (09:12)
[2016-10-02] MEDS: CHOLECALCIFEROL 1,000 UNIT TAB PO SCH (12:45)
[2016-10-02 13:12] VITALS: RESP 16
--- NOTE | 2016-10-02 19:39 | PN ---
DATE OF SERVICE: 10/02/2016 This 86-year-old woman who was admitted with CAD with abnormal stress test also had dysphasia indicating acute stroke also. The patient also has CAD, CABG. Patient is closely monitored. the patient also has gait dysfunction. Also PT, OT and neurology evaluating the patient closely. Most recent CT scan of the brain is noted. PAST MEDICAL HISTORY: Reviewed. REVIEW OF SYSTEMS: CARDIOVASCULAR: No angina. RESPIRATORY: As mentioned earlier. GI: As mentioned earlier. : No dysuria. NERVOUS SYSTEM: As mentioned earlier. Current medications are reviewed and include: 1. Maalox 30 mL q.4 p.r.n. 2. Xanax 0.5 q.6 p.r.n. 3. Aspirin 81 mg daily. 4. Lipitor 80 mg q.h.s. 6. Calcium carbonate 500 mg daily. 7. Vitamin D3 2000 daily. 8. Plavix 75 mg p.o. daily. 9. Pepcid 20 mg p.o. 10. Trandate 10 mg IV q.4 p.r.n. 11. Zestril 10 mg p.o. daily. 12. Lopressor 25 mg q.h.s. 13. Multivitamins 1 p.o. daily. 14. Nitrostat 0.4 sublingual p.r.n. 15. Zofran 4 mg q.6 p.r.n. 16. Zoloft 100 mg p.o. daily. 17. Ultram 50 mg b.i.d. p.r.n. 18. Ambien 5 mg q.h.s. p.r.n. PHYSICAL EXAM: Patient is alert, oriented x2. Pulse 69, blood pressure 150/97, respirations 16, temperature 97 degrees, pulse ox 94% on room air. HEENT: Conjunctivae normal. NECK: No jugular venous distention. CARDIOVASCULAR: S1 and S2, muffled. RESPIRATORY: Breath sounds diminished at the bases. A few scattered rhonchi and crackles. ABDOMEN: Soft, obese, nontender. No mass palpable. LEGS: No edema, no swelling. NERVOUS SYSTEM: No focal deficits. LABS: CBC within normal limits. Sodium 140, potassium 4.6, glucose 115. ASSESSMENT: 1. Coronary artery disease with abnormal stress test, status post cardiac catheterization as well as stenting of the complex circumflex coronary artery. 2. Dysphasia with possible acute cerebrovascular accident and stroke involving the left hemisphere. 3. Coronary artery disease, coronary artery bypass grafting and stent. 4. Chronic small vessel ischemia in the MRI scan. 5. History of gastroesophageal reflux disease. 6. Hypertension. 7. Hyperlipidemia. 8. History of myocardial infarction. 9. History of degenerative joint disease. 10. History of pneumonia. 11. History of vertigo. 12. Left eye macular degeneration. 13. History of appendectomy. 14. Bilateral cataracts. 15. Anxiety and depression, not otherwise specified. 16. Obesity with body mass index of 31.8. 17. Ecchymosis around the right eye. 18. Gait dysfunction. 19. FULL CODE. RECOMMENDATIONS AND DISCUSSION: I recommend to continue the current medications, continue monitoring and symptomatic treatment. Otherwise, resume the previous medications and medication reconciliation done. PT, OT evaluation. Possible ECF rehab versus home with home care. Prognosis guarded. Discussed with the family at the bedside who understands and agrees. Further recommendations to follow. MTDD
[2016-10-02] MEDS: ATORVASTATIN 80 MG TAB PO SCH (20:01)
[2016-10-02] MEDS: ZOLPIDEM 5 MG TAB PO PRN (20:01)
[2016-10-02] MEDS: VIT A,C & E-LUTEIN-MINERALS 1 EACH TAB PO SCH (20:01)
--- NOTE | 2016-10-02 21:53 | DS ---
DATE OF ADMISSION: 09/30/2016 DATE OF DISCHARGE: DIAGNOSES: 1. Unstable angina. 2. Acute ischemic stroke with speech disturbances without significant motor deficits. 3. Hypertension. 4. Hypercholesterolemia. 5. History of coronary artery disease with prior bypass surgery. PROCEDURES PERFORMED: 1. Coronary angiography with selective injection of bypass grafts. 2. Stenting of the [place] circumflex very calcified tortuous and a technically difficult procedure with excellent result. Mrs. Mckinley was brought in electively for a cardiac cath on the september. Coronary angiography revealed that she had a significant lesion in the body as well as the ostium of the vein graft to the obtuse marginal. Her second vein graft to the PLV branch of circumflex was occluded and the GONZALEZ to LAD was patent and RCA did not have significant disease. After some deliberation, I advised intervention of the [place] circumflex and this was performed with an excellent result. This was technically difficult tortuous heavily calcified vessel. Excellent angiographic result was achieved. Postprocedure patient developed an episode of hypertension and went on to have some speech disturbances. A code stroke was called. She probably had an ischemic stroke with mostly speech disturbances but all of this has recovered. This seems to be more or less a TIA-type picture with total recovery. The patient is doing well this morning. She is very appropriate, responds to come once doing well. Neurologically intact. I do not see any speech disturbances during my communication and there are no motor deficits. However, she will be discharged today if okay with neurology. She will have home care with occupational and speech therapy. Discharge instructions regarding activity, medications and diet were given. She was already on aspirin and Plavix and these will be continued. She is also on a statin agent. Blood pressure and heart rate is excellent. On day of discharge, Physical exam revealed blood pressure 144/70, pulse rate is 70 per minute. S1, S2 heard normally. Lungs are clear. Abdomen and lower extremity exam is unchanged. The right groin is clean and dry with a good pulse. FINAL IMPRESSION: This patient will be evaluated by neurology and if okayed by them, she will be discharged. Discharge instructions regarding activity, diet, medications were given and patient will go home with home care, occupational and speech therapy. CT angiography revealed bilateral carotid bifurcations atheromatous plaquing more worse on the left without any flow-limiting stenosis. The CT and agdaagux of [place] was normal. The patient will be seen by me next Thursday at 8:45 in the office. I will be speaking to her daughter when she arrives this morning.
[2016-10-03 09:25] VITALS: BP 163/72; PULSE 81; TEMP 98
[2016-10-03] MEDS: CALCIUM CARBONATE 500 MG CHEWABLE PO SCH (09:27)
[2016-10-03] MEDS: ASPIRIN 81 MG CHEW PO SCH (09:28)
[2016-10-03] MEDS: CLOPIDOGREL 75 MG TAB PO SCH (09:28)
[2016-10-03] MEDS: FAMOTIDINE 20 MG TAB PO SCH (09:28)
[2016-10-03] MEDS: LISINOPRIL 10 MG TAB PO SCH (09:28)
[2016-10-03] MEDS: METOPROLOL TARTRATE 25 MG TAB PO SCH (09:29)
[2016-10-03] MEDS: SERTRALINE 100 MG TAB PO SCH (09:29)
--- NOTE | 2016-10-03 09:46 | P.PN ---
Subjective Principal diagnosis: Circumflex stent Discharge note This is an 86-year-old female who presented to the hospital with unstable angina, she underwent angioplasty with stenting of the circumflex artery by Dr. Jagdish Gutierrez. Patient also incurred an acute ischemic stroke, resolution of symptoms. History also of hypertension, hyperlipidemia, coronary artery disease with prior bypass surgery. Patient is doing well, was initially going to be discharged to rehab yesterday, however she was up ambulating in the [place] and doing well. Plan is for her to be discharged home today. Blood pressure this morning 144/68 with a heart rate in the 70s. Objective - Vital Signs Vital signs: Vital Signs Temp 98.0 F 10/03/16 08:00 Pulse 81 10/03/16 08:00 Resp 16 10/03/16 08:00 BP 163/72 10/03/16 08:00 Pulse Ox 94 L 10/03/16 08:00 Intake & Output 10/02/16 10/03/16 10/03/16 18:59 06:59 18:59 Intake Total 170 10 10 Balance 170 10 10 Weight 71.8 kg 72.1 kg Intake: IV 30 10 10 0.9% NS FLUSH 10 10 Invasive Line 1 20 10 Oral 140 Other: Voiding Method Toilet Diaper Diaper Diaper Incontinent Incontinent Incontinent # Voids 1 1 - Exam PHYSICAL EXAMINATION: HEENT: Head is atraumatic, normocephalic. Pupils equal, round. Neck is supple. There is no elevated jugular venous pressure. HEART EXAMINATION: Heart S1, S2 normal. No murmur or gallop heard. CHEST EXAMINATION: Lungs are clear to auscultation and precussion. No chest wall tenderness is noted on palpation or with deep breathing. ABDOMEN: Soft, nontender. Bowel sounds are heard. No organomegaly noted. Right groin soft, no evidence of any hematoma. EXTREMITIES: 2+ peripheral pulses with no evidence of peripheral edema and no calf tenderness noted. NEUROLOGIC patient is awake, alert and oriented -3. . - Labs CBC & Chem 7: 10/02/16 05:42 10/02/16 05:42 Labs: Microbiology - Last 24 Hours (Table) 09/30/16 23:15 Urine Culture - Final Urine,Catheterized Assessment and Plan Plan: Assessment and plan #1 unstable angina status post angioplasty with stent placement of the circumflex artery. #2 acute ischemic stroke, resolved. #3 hypertension #4 hyperlipidemia Plan Patient may be able to be discharged home today. We will make her a follow-up appointment to see Dr. DONNA Gutierrez in the office post discharge. Patient will be discharged home on aspirin 81 mg daily, Lipitor 80 mg daily, calcium, vitamin D , Plavix 75 mg daily, Pepcid 20 mg daily, lisinopril 10 mg daily, metoprolol tartrate 50 mg in the morning and 25 mg in the evening, sublingual nitroglycerin as needed for chest pain. DNP note has been reviewed, I agree with a documented findings and plan of care. Patient was seen and examined.
--- NOTE | 2016-10-03 20:17 | PN ---
DATE OF SERVICE: 10/03/2016 This 86-year-old woman was admitted with CAD with abnormal stress test, also had stenting. The patient also had dysphagia and acute CVA also. No chest pain or palpitation. No fever. The patient has improved significantly. On exam, alert, oriented x3. Pulse 93, pulse 81, blood pressure 116/70, respirations 16, temperature 98, pulse ox 94% on room air. HEENT: Conjunctivae normal. NECK: Supple, no JVD. RESPIRATORY: Breath sounds diminished at the bases. No rhonchi, no crackles. ABDOMEN: Soft, nontender. EXTREMITIES: Legs, no edema. ROUTE SPECIALIST: No focal deficits. Move all 4 limbs. LABS: CBC within normal limits. Glucose 115. ASSESSMENT: 1. Coronary artery disease with abnormal stress test, status post cardiac catheterization as well as stenting of complex circumflex coronary artery. 2. Dysphagia with possible acute cerebrovascular accident and stroke involving the left hemisphere. 3. Coronary artery disease with coronary artery bypass grafting history. 4. Chronic small vessel ischemia on MRI scan. 5. History of gastroesophageal reflux disease. 6. Hypertension. 7. Hyperlipidemia. 8. History of myocardial infarction. 9. History of degenerative joint disease. 10. History of pneumonia. 11. History of vertigo. 12. Left eye macular degeneration. 13. History of appendectomy. 14. Bilateral cataracts. 15. Anxiety and depression, not otherwise specified. 16. Obesity with body mass index of 31.8. 17. Ecchymosis around the right eye. 18. Gait dysfunction. 19. FULL CODE. RECOMMENDATIONS AND DISCUSSION: In this 86-year-old woman who presented with multiple complex medical issues, at this time would recommend continue current medications, continue symptomatic treatment. Cardiology is recommending discharge. Would recommend close follow up with primary care physician and neurology. Further recommendations to follow.
== END 2016-10-03 12:48 | disposition home health service (06) | DRG 982 ==
LOC: CATHCVL 07:19 → 6SEL 12:49 → 6ICU 16:17 → CATHCVL 16:17 → 6ICU 21:38 → 6SEL 10-01 15:51
PROVIDERS: ADMIT Internal Medicine Interventional Cardiology; ATTEND Internal Medicine Interventional Cardiology
PROC: B2111ZZ Fluoroscopy of Multiple Coronary Arteries using Low Osmolar Contrast (ICD-10-PCS; principal; 2016-09-30 10:36)
PROC: 4A023N7 Measurement of Cardiac Sampling and Pressure, Left Heart, Percutaneous Approach (ICD-10-PCS; principal; 2016-09-30 10:36)
PROC: 02703DZ Dilation of Coronary Artery, One Artery with Intraluminal Device, Percutaneous Approach (ICD-10-PCS; principal; 2016-09-30 10:36)
PROC: B2131ZZ Fluoroscopy of Multiple Coronary Artery Bypass Grafts using Low Osmolar Contrast (ICD-10-PCS; principal; 2016-09-30 10:36)
DX: I63.9 Cerebral infarction, unspecified (principal); I25.710 Atherosclerosis of autologous vein coronary artery bypass graft(s) with unstable angina pectoris; I25.82 Chronic total occlusion of coronary artery; R47.01 Aphasia; R13.10 Dysphagia, unspecified; E11.9 Type 2 diabetes mellitus without complications; I25.110 Atherosclerotic heart disease of native coronary artery with unstable angina pectoris; E78.00 Pure hypercholesterolemia, unspecified; E78.5 Hyperlipidemia, unspecified; F32.9 Major depressive disorder, single episode, unspecified; F41.9 Anxiety disorder, unspecified; H26.9 Unspecified cataract; H35.30 Unspecified macular degeneration; I10 Essential (primary) hypertension; I25.2 Old myocardial infarction; K21.9 Gastro-esophageal reflux disease without esophagitis; R47.02 Dysphasia; S05.11XA Contusion of eyeball and orbital tissues, right eye, initial encounter; Z79.02 Long term (current) use of antithrombotics/antiplatelets; Z79.82 Long term (current) use of aspirin; Z82.49 Family history of ischemic heart disease and other diseases of the circulatory system; Z79.899 Other long term (current) drug therapy; Z88.5 Allergy status to narcotic agent
CPT/HCPCS: 70450; 70496; 70498; 71010; 80048; 80051; 81003; 82550; 82553; 82565; 84484; 84520; 85025; 85027; 85610; 87086; 93455

== ENCOUNTER 2021-05-03 04:14 | Inpatient (IN) | payer MEDICARE, BC ==
--- NOTE | 2021-05-03 04:19 | ED ---
SOB HPI - General Stated Complaint: Pneumonia Time Seen by Provider: 05/03/21 04:18 - Related Data Home Medications Medication Instructions Recorded Confirmed Aspirin EC [Ecotrin Low Dose] 81 mg PO DAILY 07/05/16 09/30/16 Calcium Carbonate [Calcium] 600 mg PO DAILY 07/05/16 09/28/16 Famotidine 40 mg PO DAILY 07/05/16 09/30/16 Metoprolol Tartrate [Lopressor] 50 mg PO QAM 07/05/16 09/28/16 Ondansetron [Zofran] 4 mg PO Q12HR PRN 07/05/16 09/28/16 traMADol HCL [Ultram] 50 mg PO BID PRN 07/05/16 09/28/16 Cholecalciferol [Vitamin D3 (25 2,000 unit PO DAILY 09/28/16 09/28/16 Mcg = 1000 Iu)] Metoprolol Tartrate 25 mg PO HS 09/28/16 09/28/16 Nitroglycerin Sl Tabs [Nitrostat] 0.4 mg SUBLINGUAL DIRECTED PRN 09/28/16 09/30/16 [place]-3 Fatty Acids/Fish Oil [Fish 1 each PO DIRECTED 09/28/16 09/28/16 Oil 1,000 mg Softgel] Sertraline [Zoloft] 100 mg PO DAILY 09/28/16 09/28/16 Sleep Aide 1 tab PO HS 09/28/16 09/28/16 Vit C/E/Zn/Coppr/Lutein/Zeaxan 1 each PO HS 09/28/16 09/28/16 [Preservision Areds 2 Softgel] Previous Rx's Medication Instructions Recorded Atorvastatin [Lipitor] 80 mg PO HS #30 tab 07/08/16 Clopidogrel [Plavix] 75 mg PO DAILY #30 tab 07/08/16 lisinopriL [Zestril] 10 mg PO DAILY #30 tab 07/08/16 Allergies Allergy/AdvReac Type Severity Reaction Status Date / Time morphine AdvReac Nausea Verified 07/05/16 12:15 ativan Allergy Confusion Uncoded 09/28/16 13:56 Review of Systems ROS Statement: Those systems with pertinent positive or pertinent negative responses have been documented in the HPI. ROS Other: All systems not noted in ROS Statement are negative. 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 Last Myocardial Infarction Date:: 2007 History of Any Multi-Drug Resistant Organisms: None Reported Past Surgical History: Appendectomy, Coronary Bypass/CABG, Heart Catheterization, Heart Catheterization With Stent, Hysterectomy Additional Past Surgical History / Comment(s): bilateral cataract removal, CABG 2007 Past Anesthesia/Blood Transfusion Reactions: No Reported Reaction Date of Last Stent Placement:: 2007 Past Psychological History: Anxiety, Depression Past Alcohol Use History: None Reported Past Drug Use History: None Reported - Past Family History Father Family Medical History: Myocardial Infarction ([place]) Mother Family Medical History: Myocardial Infarction ([place]) Disposition Referrals: None,Stated [Primary Care Provider] - 1-2 days
[2021-05-03] MEDS ORDERED: NALOXONE 0.4 MG/ML 1 ML VIAL IV PRN (05:12)
[2021-05-03] MEDS ORDERED: PNEUMONIA PROTOCOL UTILIZED 1 EACH MISC PO PRN (05:12)
[2021-05-03] MEDS ORDERED: ONDANSETRON 4 MG/2 ML VIAL IVP PRN (05:12)
[2021-05-03] MEDS ORDERED: IPRATROPIUM-ALBUTEROL 3 ML NEB INHALATION PRN (05:12)
[2021-05-03] MEDS ORDERED: HYDROmorphone 1 MG/ML 1 ML SYRINGE IVP PRN (05:14)
[2021-05-03] MEDS ORDERED: HYDROmorphone 1 MG/ML 1 ML SYRINGE IVP STA (05:14)
[2021-05-03] MEDS ORDERED: AZITHROMYCIN 500 MG in SODIUM CHLORIDE 0.9% 250 ML IVPB ONE (05:30)
[2021-05-03] MEDS: SODIUM CHLORIDE 0.9% 1,000 ML IV SCH ×2 (05:38→15:10)
[2021-05-03] MEDS: ENOXAPARIN 40 MG/0.4 ML SYRINGE SQ SCH (09:39)
[2021-05-03 11:59] LABS: Basophils % (A) 1 %; Eosinophils # (A) 0.2 k/uL (0-0.7); Eosinophils % (A) 3 %; HCT 43.9 % (34.0-46.0); HGB 13.4 gm/dL (11.4-16.0); Hypochromasia Moderate; Lymphocytes # (A) 1.8 k/uL (1.0-4.8); Lymphocytes % (A) 30 %; MCH 27.9 pg (25.0-35.0); MCHC 30.6 g/dL (31.0-37.0); MCV 91.4 fL (80.0-100.0); Mean Platelet Volume 7.6; Monocytes # (A) 0.3 k/uL (0-1.0); Monocytes % (A) 4 %; Neutrophils # (A) 3.8 k/uL (1.3-7.7); Neutrophils % (A) 62 %; Platelet Count 312 k/uL (150-450); RDW 13.4 % (11.5-15.5); WBC 6.1 k/uL (3.8-10.6)
[2021-05-03 12:15] LABS: African American GFR (CKD) 59 (>60 ml/min/1.73 sqM); Anion Gap 12 mmol/L; Blood Urea Nitrogen 30 mg/dL (7-17); Calcium 9.4 mg/dL (8.4-10.2); Carbon Dioxide 19 mmol/L (22-30); Chloride 114 mmol/L (98-107); Glucose 95 mg/dL (74-99); Non-African American GFR(CKD) 51 (>60 ml/min/1.73 sqM); Potassium 5.2 mmol/L (3.5-5.1); Sodium 145 mmol/L (137-145)
[2021-05-03] MEDS ORDERED: guaiFENesin 600 MG TABLET.ER PO PRN (19:37)
[2021-05-04] MEDS: SODIUM CHLORIDE 0.9% 1,000 ML IV SCH ×2 (03:35→15:53)
--- NOTE | 2021-05-04 07:35 | XR ---
EXAMINATION TYPE: XR chest 2V DATE OF EXAM: 05/04/2021 COMPARISON: None HISTORY: 89-year-old female pneumonia TECHNIQUE: AP and lateral views FINDINGS: Median sternotomy wires are present with postoperative clips in the mediastinum. Heart normal size. M ild interstitial prominence is a chronic appearance. There is the appearance of a trace right effusio n with focal right mid lung opacity seen posteriorly on the lateral view. Atelectatic calcifications within the abdominal aorta. IMPRESSION: Posterior right mid lung airspace disease/pneumonia with trace right effusion.
--- NOTE | 2021-05-04 08:21 | P.HPIM ---
History of Present Illness H&P Date: 05/03/21 Chief Complaint: Pneumonia 89-year-old female patient with history of CAD/VA, hypertension, hyperlipidemia, was transferred to our hospital from an outside facility where she was diagnosed with pneumonia and altered mental status; patient is from an extended care facility and unable to provide much history at this time; patient was transferred to our hospital for higher level of care; patient is currently on IV ceftriaxone and azithromycin Review of Systems ROS unobtainable: due to mental status Past Medical History Past Medical History: Coronary Artery Disease (CAD), Chest Pain / Angina, Eye Disorder, GERD/Reflux, Hyperlipidemia, Hypertension, Myocardial Infarction ([place]), Osteoarthritis (OA), Pneumonia Additional Past Medical History / Comment(s): vertigo, 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, aphasia following cerbral infarction, major depressive disorder, anxiety, trigeminal neuralgia, overactive bladder, coronary arter, macular degeneration, urine retention, reflux, UTI,s, anemia, malnutrition, CKD stage 3, Last Myocardial Infarction Date:: 2007 History of Any Multi-Drug Resistant Organisms: None Reported Past Surgical History: Appendectomy, Coronary Bypass/CABG, Heart Catheterization, Heart Catheterization With Stent, Hysterectomy Additional Past Surgical History / Comment(s): bilateral cataract removal, CABG 2007 Past Anesthesia/Blood Transfusion Reactions: No Reported Reaction Date of Last Stent Placement:: 2007 Past Psychological History: Anxiety, Depression Smoking Status: Unknown if ever smoked Past Alcohol Use History: None Reported Past Drug Use History: None Reported - Past Family History Father Family Medical History: Myocardial Infarction ([place]) Mother Family Medical History: Myocardial Infarction ([place]) Medications and Allergies Home Medications Medication Instructions Recorded Confirmed Type Metoprolol Tartrate [Lopressor] 25 mg PO BID 07/05/16 05/03/21 History Acetaminophen [Tylenol Extra 500 mg PO Q8H PRN 05/03/21 05/03/21 History Strength] Benzocain/Benzalkonm Oral Gel 1 applic DENTAL TID PRN 05/03/21 05/03/21 History [Orajel Anesthetic Max Strength] Lactase [Lactaid] 3,000 unit PO TID-W/MEALS 05/03/21 05/03/21 History Loperamide [Imodium] 2 mg PO ACHS PRN 05/03/21 05/03/21 History Loratadine 10 mg PO DAILY 05/03/21 05/03/21 History Nystatin 100,000 Unit/gm Powd 1 applic TOPICAL TID PRN 05/03/21 05/03/21 History [Mycostatin Powder] OLANZapine 10 mg PO HS 05/03/21 05/03/21 History [place]-3 Acid Ethyl Esters [Lovaza] 1 gm PO BID 05/03/21 05/03/21 History bisacodyL 10 mg RECTAL DAILY PRN 05/03/21 05/03/21 History lisinopriL [Zestril] 5 mg PO DAILY 05/03/21 05/03/21 History Allergies Allergy/AdvReac Type Severity Reaction Status Date / Time morphine AdvReac Nausea Verified 07/05/16 12:15 ativan Allergy Confusion Uncoded 09/28/16 13:56 Physical Exam Vitals: Vital Signs Temp Pulse Pulse Resp BP BP Pulse Ox 05/03/21 07:49 98.3 F 94 18 136/75 100 05/03/21 06:44 51 L 20 100 05/03/21 06:13 51 L 20 129/64 98 05/03/21 06:02 97.5 F L 05/03/21 05:46 45 L 20 140/60 96 05/03/21 04:33 20 05/03/21 04:17 93.0 F L 51 L 20 141/74 96 Intake and Output 05/02/21 05/03/21 05/03/21 22:59 06:59 14:59 Other: Weight 59.421 kg General appearance: no acute distress EENT; EOMI, PERRLA, normal appearance Neck: normal ROM. Absent: lymphadenopathy, rigidity, thyromegaly Respiratory: bilateral: rhonchi, wheezing Cardiovascular; regular; normal: S1, S2; Absent: systolic murmur, diastolic murmur Gastrointestinal: normal bowel sounds, soft. Absent: distended, organomegaly, tenderness Genitourinary Comment(s): deferred Integumentary: Present: normal turgor. Absent: jaundiced, rash, ulcer Neurologic: Patient opens eyes on verbal stimulation; moves all extremities; no focal deficit noted Musculoskeletal: strength equal bilaterally Psychiatric: Unable to evaluate Results CBC & Chem 7: 05/03/21 11:05 05/03/21 11:05 Thrombosis Risk Factor Assmnt - Choose All That Apply Any of the Below Risk Factors Present?: Yes Each Risk Factor Represents 3 Points: Age 75 years or older Thrombosis Risk Factor Assessment Total Risk Factor Score: 3 Thrombosis Risk Factor Assessment Level: Moderate Risk Assessment and Plan Assessment: 1. Community-acquired pneumonia; patient remains on ceftriaxone and azithromycin; DuoNeb nebulizer treatments; symptomatic treatment of pneumonia 2. Urinary retention; patient hasn't been able to void with over 800 mL and bladder with scanning; we will insert Winter catheter; add Flomax 0.4 mg daily; consult urology for further recommendations 3. Hyperkalemia; patient not on any potassium supplement; we will monitor electrolytes closely. Further recommendations 4. Hypertension; currently blood pressures are soft; patient takes metoprolol 25 mg twice a day along with lisinopril 5 mg daily; we will hold off on antihypertensive therapy and monitor blood pressure closely 5. Hyperlipidemia; previously on Lipitor 80 mg daily at bedtime; not on any statin therapy at this time 6. CAD/history of VA; patient on aspirin and beta blockers; not on statin therapy at this time; patient has been on Plavix and Lipitor previously; not sure why these medications were discontinued DVT prophylaxis; SCDs/subcu Lovenox CODE STATUS; DO NOT RESUSCITATE
[2021-05-04] MEDS: ENOXAPARIN 40 MG/0.4 ML SYRINGE SQ SCH (09:51)
[2021-05-04] MEDS: AZITHROMYCIN 500 MG TAB PO SCH (09:51)
[2021-05-04 11:09] LABS: Basophils # (A) 0.02 X 10*3/uL (0.00-0.10); Basophils % (A) 0.4 %; Eosinophils # (A) 0.21 X 10*3/uL (0.04-0.35); Eosinophils % (A) 4.1 %; HCT 32.9 % (37.2-46.3); HGB 9.7 g/dL (12.0-15.0); Lymphocytes # (A) 2.06 X 10*3/uL (0.90-5.00); Lymphocytes % (A) 40.2 %; MCH 26.7 pg (27.0-32.0); MCHC 29.5 g/dL (32.0-37.0); MCV 90.6 fL (80.0-97.0); Mean Platelet Volume 10.1 fL (9.5-12.2); Monocytes # (A) 0.28 X 10*3/uL (0.20-1.00); Monocytes % (A) 5.5 %; Neutrophils # (A) 2.55 X 10*3/uL (1.80-7.70); Neutrophils % (A) 49.6 %; Platelet Count 212 X 10*3/uL (140-440); RBC 3.63 X 10*6/uL (4.10-5.20); RDW 13.1 % (11.5-14.5); WBC 5.13 X 10*3/uL (4.50-10.00)
[2021-05-04 12:04] LABS: African American GFR (CKD) 66.2 (60.0-200.0); Albumin 3.2 g/dL (3.80-4.90); Albumin/Globulin Ratio 1.52 (1.60-3.17); Anion Gap 6.6 mmol/L (4.00-12.00); BUN/Creat Ratio 25.56 Ratio (12.00-20.00); Calcium 8.5 mg/dL (8.7-10.3); Carbon Dioxide 20.4 mmol/L (21.6-31.8); Globulin 2.1 g/dL (1.6-3.3); Non-African American GFR(CKD) 57.1 (60.0-200.0); Potassium 4.7 mmol/L (3.5-5.5); Total Bilirubin 0.2 mg/dL (0.2-1.2); Total Protein 5.3 g/dL (6.2-8.2)
--- NOTE | 2021-05-04 14:08 | P.GSCN ---
History of Present Illness Consult date: 05/04/21 Reason for Consult: Urinary retention History of present illness: This is an 89-year-old female admitted to the hospital with pneumonia and al tered mental status; patient is from an extended care facility. Yesterday a PVR was obtained which was elevated at 800 mL, subsequently a Winter catheter was placed. No previous history of urinary retention. Denies any voiding issues at baseline. No history of recurrent UTI. Denies any dysuria or gross hematuria. Review of Systems - Constitutional Denies fever, Denies weight loss - Cardiovascular Denies chest pain, Denies shortness of breath - Respiratory Denies cough, Denies 7 - Gastrointestinal Reports as per HPI - Genitourinary Genitourinary: Denies dysuria, Denies hematuria - Integumentary Denies rash, Denies unusual bruising - Neurological Denies headaches, Denies syncope Past Medical History Past Medical History: Coronary Artery Disease (CAD), Chest Pain / Angina, Eye Disorder, GERD/Reflux, Hyperlipidemia, Hypertension, Myocardial Infarction ([place]), Osteoarthritis (OA), Pneumonia Additional Past Medical History / Comment(s): vertigo, 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, aphasia following cerbral infarction, major depressive disorder, anxiety, trigeminal neuralgia, overactive bladder, coronary arter, macular degeneration, urine retention, reflux, UTI,s, anemia, malnutrition, CKD stage 3, Last Myocardial Infarction Date:: 2007 History of Any Multi-Drug Resistant Organisms: None Reported Past Surgical History: Appendectomy, Coronary Bypass/CABG, Heart Catheterization, Heart Catheterization With Stent, Hysterectomy Additional Past Surgical History / Comment(s): bilateral cataract removal, CABG 2007 Past Anesthesia/Blood Transfusion Reactions: No Reported Reaction Date of Last Stent Placement:: 2007 Past Psychological History: Anxiety, Depression Smoking Status: Unknown if ever smoked Past Alcohol Use History: None Reported Past Drug Use History: None Reported - Past Family History Father Family Medical History: Myocardial Infarction ([place]) Mother Family Medical History: Myocardial Infarction ([place]) Medications and Allergies Home Medications Medication Instructions Recorded Confirmed Type Metoprolol Tartrate [Lopressor] 25 mg PO BID 07/05/16 05/03/21 History Acetaminophen [Tylenol Extra 500 mg PO Q8H PRN 05/03/21 05/03/21 History Strength] Benzocain/Benzalkonm Oral Gel 1 applic DENTAL TID PRN 05/03/21 05/03/21 History [Orajel Anesthetic Max Strength] Lactase [Lactaid] 3,000 unit PO TID-W/MEALS 05/03/21 05/03/21 History Loperamide [Imodium] 2 mg PO ACHS PRN 05/03/21 05/03/21 History Loratadine 10 mg PO DAILY 05/03/21 05/03/21 History Nystatin 100,000 Unit/gm Powd 1 applic TOPICAL TID PRN 05/03/21 05/03/21 History [Mycostatin Powder] OLANZapine 10 mg PO HS 05/03/21 05/03/21 History [place]-3 Acid Ethyl Esters [Lovaza] 1 gm PO BID 05/03/21 05/03/21 History bisacodyL 10 mg RECTAL DAILY PRN 05/03/21 05/03/21 History lisinopriL [Zestril] 5 mg PO DAILY 05/03/21 05/03/21 History Allergies Allergy/AdvReac Type Severity Reaction Status Date / Time morphine AdvReac Nausea Verified 07/05/16 12:15 ativan Allergy Confusion Uncoded 09/28/16 13:56 Surgical - Exam Vital Signs Temp Pulse Resp BP Pulse Ox 93.0 F L 51 L 20 141/74 96 05/03/21 04:17 05/03/21 04:17 05/03/21 04:17 05/03/21 04:17 05/03/21 04:17 - General well developed, well nourished, no distress, no pain - Eyes PERRL, normal ocular movement - ENT normal nares, normal mucosa - Respiratory normal expansion, normal respiratory effort - Abdomen Abdomen: no tender, no distended - Genitourinary Winter draining clear yellow urine - Psychiatric oriented to time, oriented to person, oriented to place Results - Labs 05/04/21 04:44 05/04/21 04:44 Abnormal Lab Results - Last 24 Hours (Table) 05/04/21 05/04/21 Range/Units 04:44 04:44 RBC 3.63 L (4.10-5.20) X 10*6/uL Hgb 9.7 L (12.0-15.0) g/dL Hct 32.9 L (37.2-46.3) % MCH 26.7 L (27.0-32.0) pg MCHC 29.5 L (32.0-37.0) g/dL Chloride 115 H (96-109) mmol/L Carbon Dioxide 20.4 L (21.6-31.8) mmol/L Est GFR (CKD-EPI)NonAf 57.1 L (60.0-200.0) BUN/Creatinine Ratio 25.56 H (12.00-20.00) Ratio Calcium 8.5 L (8.7-10.3) mg/dL Alkaline Phosphatase 142 H (41-126) U/L Total Protein 5.3 L (6.2-8.2) g/dL Albumin 3.20 L (3.80-4.90) g/dL Albumin/Globulin Ratio 1.52 L (1.60-3.17) g/dL Diabetes panel 05/04/21 Range/Units 04:44 Sodium 142 (135-145) mmol/L Potassium 4.7 (3.5-5.5) mmol/L Chloride 115 H (96-109) mmol/L Carbon Dioxide 20.4 L (21.6-31.8) mmol/L BUN 23.0 (9.0-27.0) mg/dL Creatinine 0.9 (0.6-1.5) mg/dL Glucose 82 (70-110) mg/dL Calcium 8.5 L (8.7-10.3) mg/dL AST 28 (13-35) U/L ALT 22 (8-44) U/L Alkaline Phosphatase 142 H (41-126) U/L Total Protein 5.3 L (6.2-8.2) g/dL Albumin 3.20 L (3.80-4.90) g/dL Calcium panel 05/04/21 Range/Units 04:44 Calcium 8.5 L (8.7-10.3) mg/dL Albumin 3.20 L (3.80-4.90) g/dL Pituitary panel 05/04/21 Range/Units 04:44 Sodium 142 (135-145) mmol/L Potassium 4.7 (3.5-5.5) mmol/L Chloride 115 H (96-109) mmol/L Carbon Dioxide 20.4 L (21.6-31.8) mmol/L BUN 23.0 (9.0-27.0) mg/dL Creatinine 0.9 (0.6-1.5) mg/dL Glucose 82 (70-110) mg/dL Calcium 8.5 L (8.7-10.3) mg/dL Adrenal panel 05/04/21 Range/Units 04:44 Sodium 142 (135-145) mmol/L Potassium 4.7 (3.5-5.5) mmol/L Chloride 115 H (96-109) mmol/L Carbon Dioxide 20.4 L (21.6-31.8) mmol/L BUN 23.0 (9.0-27.0) mg/dL Creatinine 0.9 (0.6-1.5) mg/dL Glucose 82 (70-110) mg/dL Calcium 8.5 L (8.7-10.3) mg/dL Total Bilirubin 0.2 (0.2-1.2) mg/dL AST 28 (13-35) U/L ALT 22 (8-44) U/L Alkaline Phosphatase 142 H (41-126) U/L Total Protein 5.3 L (6.2-8.2) g/dL Albumin 3.20 L (3.80-4.90) g/dL Assessment and Plan Assessment: This is an 89-year-old female admitted to the hospital with pneumonia. PVR was obtained yesterday showed an elevated PVR at 800 mL, a Winter catheter was placed. No voiding issues at baseline, no previous history retention or history of recurrent UTIs. She was asymptomatic from her elevated PVR Plan: Trial of void prior to discharge. If PVR is less than 400 mL, and then can be discharged without a Winter catheter. But if PVR is greater than 400 ml reinserted Winter catheter, she will need a trial of void in the half-way in 2 weeks. If retention resolves no further follow-up is needed with urology, but of retention persists, then she can follow-up as an outpatient.
--- NOTE | 2021-05-04 20:52 | P.PN ---
Subjective Progress Note Date: 05/04/21 Principal diagnosis: Community-acquired pneumonia Urinary retention Hyperkalemia 89-year-old female patient with history of CAD/VA, hypertension, hyperlipidemia, was transferred to our hospital from an outside facility where she was diagnosed with pneumonia and altered mental status; patient is from an extended care facility and unable to provide much history at this time; patient was transferred to our hospital for higher level of care; patient is currently on IV ceftriaxone and azithromycin Objective - Vital Signs Vital signs: Vital Signs Temp 98.3 F 05/04/21 07:56 Pulse 54 L 05/04/21 07:56 Resp 18 05/04/21 07:56 BP 136/74 05/04/21 07:56 Pulse Ox 95 05/04/21 07:56 Intake & Output 05/03/21 05/04/21 05/04/21 18:59 06:59 18:59 Intake Total 550 Output Total 1150 500 Balance -600 -500 Intake: Oral 550 Output: Urine 1150 500 Other: Voiding Method Toilet Indwelling Catheter Indwelling Catheter - Exam General appearance: no acute distress EENT; EOMI, PERRLA, normal appearance Neck: normal ROM. Absent: lymphadenopathy, rigidity, thyromegaly Respiratory: bilateral: rhonchi, wheezing Cardiovascular; regular; normal: S1, S2; Absent: systolic murmur, diastolic murmur Gastrointestinal: normal bowel sounds, soft. Absent: distended, organomegaly, tenderness Genitourinary Comment(s): deferred Integumentary: Present: normal turgor. Absent: jaundiced, rash, ulcer Neurologic: Patient opens eyes on verbal stimulation; moves all extremities; no focal deficit noted Musculoskeletal: strength equal bilaterally Psychiatric: Unable to evaluate - Labs CBC & Chem 7: 05/04/21 04:44 05/04/21 04:44 Labs: Abnormal Lab Results - Last 24 Hours (Table) 05/04/21 05/04/21 Range/Units 04:44 04:44 RBC 3.63 L (4.10-5.20) X 10*6/uL Hgb 9.7 L (12.0-15.0) g/dL Hct 32.9 L (37.2-46.3) % MCH 26.7 L (27.0-32.0) pg MCHC 29.5 L (32.0-37.0) g/dL Chloride 115 H (96-109) mmol/L Carbon Dioxide 20.4 L (21.6-31.8) mmol/L Est GFR (CKD-EPI)NonAf 57.1 L (60.0-200.0) BUN/Creatinine Ratio 25.56 H (12.00-20.00) Ratio Calcium 8.5 L (8.7-10.3) mg/dL Alkaline Phosphatase 142 H (41-126) U/L Total Protein 5.3 L (6.2-8.2) g/dL Albumin 3.20 L (3.80-4.90) g/dL Albumin/Globulin Ratio 1.52 L (1.60-3.17) g/dL Assessment and Plan Assessment: 1. Community-acquired pneumonia; patient remains on ceftriaxone and azithromycin; DuoNeb nebulizer treatments; symptomatic treatment of pneumonia 2. Urinary retention; patient hasn't been able to void with over 800 mL and bladder with scanning; we will insert Winter catheter; add Flomax 0.4 mg daily; consult urology for further recommendations 3. Hyperkalemia; patient not on any potassium supplement; we will monitor electrolytes closely. Further recommendations 4. Hypertension; currently blood pressures are soft; patient takes metoprolol 25 mg twice a day along with lisinopril 5 mg daily; we will hold off on antihypertensive therapy and monitor blood pressure closely 5. Hyperlipidemia; previously on Lipitor 80 mg daily at bedtime; not on any statin therapy at this time 6. CAD/history of VA; patient on aspirin and beta blockers; not on statin therapy at this time; patient has been on Plavix and Lipitor previously; not sure why these medications were discontinued DVT prophylaxis; SCDs/subcu Lovenox CODE STATUS; DO NOT RESUSCITATE
[2021-05-04] MEDS: lisinopriL 5 MG TAB PO SCH (21:42)
[2021-05-04] MEDS: METOPROLOL TARTRATE 25 MG TAB PO SCH (21:42)
[2021-05-05] MEDS: SODIUM CHLORIDE 0.9% 1,000 ML IV SCH ×2 (03:30→09:00)
[2021-05-05] MEDS: ENOXAPARIN 40 MG/0.4 ML SYRINGE SQ SCH (09:00)
[2021-05-05] MEDS: lisinopriL 5 MG TAB PO SCH ×2 (09:00→12:37)
[2021-05-05] MEDS: AZITHROMYCIN 500 MG TAB PO SCH (09:00)
[2021-05-05] MEDS: METOPROLOL TARTRATE 25 MG TAB PO SCH (09:00)
[2021-05-05 09:11] LABS: Basophils # (A) 0.02 X 10*3/uL (0.00-0.10); Basophils % (A) 0.4 %; Eosinophils # (A) 0.12 X 10*3/uL (0.04-0.35); Eosinophils % (A) 2.6 %; HCT 32.3 % (37.2-46.3); HGB 10.1 g/dL (12.0-15.0); Lymphocytes % (A) 41.5 %; MCH 27.2 pg (27.0-32.0); MCHC 31.3 g/dL (32.0-37.0); MCV 87.1 fL (80.0-97.0); Mean Platelet Volume 9.8 fL (9.5-12.2); Monocytes # (A) 0.32 X 10*3/uL (0.20-1.00); Neutrophils # (A) 2.21 X 10*3/uL (1.80-7.70); Neutrophils % (A) 48.3 %; Platelet Count 227 X 10*3/uL (140-440); RBC 3.71 X 10*6/uL (4.10-5.20); RDW 12.9 % (11.5-14.5); WBC 4.58 X 10*3/uL (4.50-10.00)
[2021-05-05 09:56] LABS: African American GFR (CKD) 58.3 (60.0-200.0); Anion Gap 7.4 mmol/L (4.00-12.00); Calcium 8.7 mg/dL (8.7-10.3); Carbon Dioxide 20.6 mmol/L (21.6-31.8); Non-African American GFR(CKD) 50.3 (60.0-200.0); Potassium 4.2 mmol/L (3.5-5.5)
[2021-05-05] MEDS ORDERED: lisinopriL 5 MG TAB PO SCH (12:00)
--- NOTE | 2021-05-05 14:43 | CDI ---
Documentation Clarification Form Date: 05/05/2021 02:18:10 PM From: Kiki Emanuel RN, CCDS Admit Date: 05/03/2021 05:12:00 AM Patient Name: Ada Mckinley Visit Number: [id number] Discharge Date: ATTENTION: The Clinical Documentation Specialists (CDI) and [facility] Coding Staff appreciate your assistance in clarifying documentation. Please respond to the clarification below the line at the bottom and electronically sign. The CDI & [facility] Coding staff will review the response and follow-up if needed. Please note: Queries are made part of the Legal Health Record. If you have any questions, please contact the author of this message via ITS. Dr. Rosey Graham Your patient has the documented symptom of Altered Mental Status in the ED assessment on 05/03, nursing assessment and in the H/P. Additional clarification regarding the etiology/cause of this symptom is requested. History/Risk Factors: Coronary Artery Disease, Chest Pain/Angina, Hypertension, Pneumonia Clinical Indicators: 89-year-old female present to ED on 05/03 as a transfer for pneumonia and altered mental status from [facility]. Nursing assessment finds patient confused, disoriented x3. 05/03 Vital sign: 129/64 51 20 97.5 98 % 2/L NC 05/03 Labs: WBC 6.1, Potassium 5.2, Carbon Dioxide 19 BUN 30, Creatinine 0.99 05/04 Chest x-ray Posterior right mid lung airspace [id number] with trace right effusion Treatment: Neuro checks per protocol Zithromax 500MG IVPB ONCE then PO DAILY 05/03-05/05 Rocephin 2 GM IVPB Q 24 HRS 05/03-05/05 Omnicef 300MG PO Q 12 HRS (START 05/06 Please clarify the etiology of the symptom of Altered Mental Status: [ ] Metabolic Encephalopathy due to pneumonia [ ] Dementia (if know, specify Type and if with/without Behavioral Disturbance) [ ] Other condition (please specify [ ] Unable to determine (Template Last Revised: September 2020) Metabolic Encephalopathy due to pneumonia MTDD
[2021-05-05 15:00] VITALS: BP 183/64; PULSE 54; RESP 15; TEMP 97.7
[2021-05-06] MEDS ORDERED: CEFDINIR 300 MG CAP PO SCH (09:00)
--- NOTE | 2021-05-06 13:18 | P.DS ---
Providers Date of admission: 05/03/21 05:12 Expected date of discharge: 05/05/21 Attending physician: Ibrahima Saavedra Consults: 05/03/21 19:20 Consult Physician Routine Consulting Provider: Dave Gotti Consult Reason/Comments: urinary retention Do you want consulting provider notified?: Yes, Notify in am Primary care physician: Stated None Hospital Course: Final diagnosis -Community-acquired pneumonia, present on admission -Altered mental status with acute metabolic encephalopathy possibly secondary to pneumonia -Urinary retention -Hyperkalemia -Hypertension -Hyperlipidemia -CAD/history of [place] -DVT prophylaxis -No code Discharge disposition Patient is being discharged in a stable condition with guarded prognosis to [facility] where she is a resident. Patient will follow-up with visiting physician in the outpatient setting upon discharge. Patient will continue on oral Ceftin air 300 mg twice daily for the next 5 days to complete the course. Patient to follow with urology outpatient as needed. Total time taken is greater than 35 minutes. Hospital course Community-acquired pneumonia Urinary retention Hyperkalemia 89-year-old female patient with history of CAD/[place], hypertension, hyperlipidemia, was transferred to our hospital from an outside facility where she was diagnosed with pneumonia and altered mental status; patient is from an extended care facility and unable to provide much history at this time; patient was transferred to our hospital for higher level of care; patient is currently on IV ceftriaxone and azithromycin. Patient will be transitioned oral Cefdinir 5 days and then may discontinue. She continues to be confused which appears to be her baseline. Indwelling Winter catheter was removed and patient is voiding and is incontinent of urine. If retention continues to occur patient will need to follow-up with urology outpatient. Currently no reports of chest pain, shortness of breath, or palpitations. Patient is afebrile. No reports of nausea or vomiting and patient is tolerating diet. Patient will be discharged to [facility] today. Guarded prognosis. Patient is lying in bed , awake alert and oriented 1-2.. HEENT: Normocephalic. Neck is supple. Pupils reactive. Nostrils clear. Oral cavity is moist. Neck reveals no JVD, carotid bruits, or thyromegaly. CHEST EXAMINATION: Trachea is central. Symmetrical expansion. Bibasilar diminished sounds. No wheezing or rhonchi. CARDIAC: S1, S2 are muffled ABDOMEN: Soft. Bowel sounds normal. splenomegaly. No abdominal bruits. Extremities: No clubbing or cyanosis Neurologically awake, alert, oriented x1-2 with well-coordinated movements. No focal deficits noted Skin: No rash or skin lesions. Psychiatric: Cooperative. Non-suicidal Musculoskeletal: No joint swelling or deformity. Normal range of motion. Please refer to medication reconciliation sheet for a list of medications. Patient Condition at Discharge: Fair Plan - Discharge Summary Discharge Rx Participant: No New Discharge Prescriptions: New guaiFENesin [Mucinex] 600 mg PO Q12HR PRN #10 tablet PRN Reason: Sinus Symptoms Cefdinir [Omnicef] 300 mg PO Q12HR 5 Days #10 cap Continue [place]-3 Acid Ethyl Esters [Lovaza] 1 gm PO BID Benzocain/Benzalkonm Oral Gel [Orajel Anesthetic Max Strength] 1 applic DENTAL TID PRN PRN Reason: TOOTH/GUM PAIN bisacodyL 10 mg RECTAL DAILY PRN PRN Reason: Constipation OLANZapine 10 mg PO HS Loratadine 10 mg PO DAILY Acetaminophen [Tylenol Extra Strength] 500 mg PO Q8H PRN PRN Reason: Pain Or Fever > 100.5 Lactase [Lactaid] 3,000 unit PO TID-W/MEALS Nystatin 100,000 Unit/gm Powd [Mycostatin Powder] 1 applic TOPICAL TID PRN PRN Reason: YEAST INFECTION/RASH Loperamide [Imodium] 2 mg PO ACHS PRN PRN Reason: Diarrhea Changed lisinopriL [Zestril] 10 mg PO DAILY 30 Days #30 tab Discontinued Metoprolol Tartrate [Lopressor] 25 mg PO BID Discharge Medication List Acetaminophen [Tylenol Extra Strength] 500 mg PO Q8H PRN 05/03/21 [History] Benzocain/Benzalkonm Oral Gel [Orajel Anesthetic Max Strength] 1 applic DENTAL TID PRN 05/03/21 [History] Lactase [Lactaid] 3,000 unit PO TID-W/MEALS 05/03/21 [History] Loperamide [Imodium] 2 mg PO ACHS PRN 05/03/21 [History] Loratadine 10 mg PO DAILY 05/03/21 [History] Nystatin 100,000 Unit/gm Powd [Mycostatin Powder] 1 applic TOPICAL TID PRN 05/03/21 [History] OLANZapine 10 mg PO HS 05/03/21 [History] [place]-3 Acid Ethyl Esters [Lovaza] 1 gm PO BID 05/03/21 [History] bisacodyL 10 mg RECTAL DAILY PRN 05/03/21 [History] Cefdinir [Omnicef] 300 mg PO Q12HR 5 Days #10 cap 05/05/21 [Rx] guaiFENesin [Mucinex] 600 mg PO Q12HR PRN #10 tablet 05/05/21 [Rx] lisinopriL [Zestril] 10 mg PO DAILY 30 Days #30 tab 05/05/21 [Rx] Follow up Appointment(s)/Referral(s): Dave Gotti MD [STAFF PHYSICIAN] - As Needed None,Stated [Primary Care Provider] - 1-2 days Care,Teresa Howell [NON-STAFF] - As Needed Ambulatory/Diagnostic Orders: Complete Blood Count w/diff [LAB.AMB] Location: None Selected Patient Instructions/Handouts: Urinary Retention in Men (GEN), Winter Catheter Placement and Care (DC), Pneumonia (DC) Activity/Diet/Wound Care/Special Instructions: Patient is returning to [facility] DC meds were transferred to [facility] per [place] request. Please note patient will be continued on lisinopril 10 mg daily as her previous dose was 5 mg discontinuing metoprolol on discharge and will need follow-up outpatient as heart rate was low Continue with antibiotics for 5 days and then may discontinue Continue to monitor for urinary retention or decreased urinary output and may need outpatient urology follow-up with Dr. Gotti Continue with regular diet with soft foods Discharge Disposition: HOME WITH HOME HEALTH SERVICES
== END 2021-05-05 16:19 | disposition home health service (06) | DRG 193 ==
LOC: EC 04:14 → 4SSUR 05:12
PROVIDERS: ADMIT Hospitalist; ATTEND Hospitalist
DX: J18.9 Pneumonia, unspecified organism (principal); G93.41 Metabolic encephalopathy; E78.5 Hyperlipidemia, unspecified; E87.5 Hyperkalemia; F32.9 Major depressive disorder, single episode, unspecified; F41.9 Anxiety disorder, unspecified; I25.10 Atherosclerotic heart disease of native coronary artery without angina pectoris; Z95.1 Presence of aortocoronary bypass graft; Z90.710 Acquired absence of both cervix and uterus; Z82.49 Family history of ischemic heart disease and other diseases of the circulatory system; Z79.899 Other long term (current) drug therapy; Z79.82 Long term (current) use of aspirin; Z79.02 Long term (current) use of antithrombotics/antiplatelets; Z66 Do not resuscitate; I69.320 Aphasia following cerebral infarction; K21.9 Gastro-esophageal reflux disease without esophagitis; M19.90 Unspecified osteoarthritis, unspecified site; H54.62 Unqualified visual loss, left eye, normal vision right eye; I25.2 Old myocardial infarction; N18.30 Chronic kidney disease, stage 3 unspecified; I12.9 Hypertensive chronic kidney disease with stage 1 through stage 4 chronic kidney disease, or unspecified chronic kidney disease; H35.30 Unspecified macular degeneration; R33.9 Retention of urine, unspecified; N32.81 Overactive bladder; R32 Unspecified urinary incontinence; G50.0 Trigeminal neuralgia; R16.1 Splenomegaly, not elsewhere classified; D64.9 Anemia, unspecified
CPT/HCPCS: 71046; 80048; 80053; 84484; 85025; 93005; 96361; 96374; 99285